=== PATIENT | female | born 1935 | race Two or more races ===

== ENCOUNTER 2018-07-11 14:26 | Emergency (ER) | payer OTHER, MEDICAID ==
[~2018-07-11] VITALS: Ht 152.4 cm; Wt 67.1 kg
[2018-07-11 15:36] LABS: Basophils # (auto) 0 uL; Basophils % (auto) 0.9 % (0.0-2.0); Eosinophils # (auto) 0.2 uL; Eosinophils % (auto) 2.8 % (0.0-7.0); Hematocrit 39.8 % (36.0-46.0); Hemoglobin 13.6 g/dL (12.2-16.2); Lymphocytes # (auto) 2.5 uL; Lymphocytes % (auto) 44.1 % (10.0-50.0); Mean Corpuscular Hemoglobin 30.9 pg (28.0-32.0); Mean Corpuscular Hgb Conc. 34.1 g/dL (32.0-36.0); Mean Corpuscular Volume 90.5 fL (80.0-100.0); Monocytes # (auto) 0.4 uL; Monocytes % (auto) 7.6 % (0.0-12.0); Neutrophils # (auto) 2.5 uL; Neutrophils % (auto) 44.6 % (37.0-80.0); Nucleated Red Blood Cells % 0.1 %; Platelet Count (auto) 225 10^3/uL (140-450); Red Cell Distribution Width 14.7 % (11.8-14.3); Urine Bacteria NONE SEEN /hpf (None Seen); Urine Blood TRACE /uL (Negative); Urine Specific Gravity 1.002 (1.001-1.035); Urine WBC <1 /hpf (0 - 5); White Blood Cell 5.6 10^3/uL (4.4-10.8)
[2018-07-11 16:08] LABS: Alanine Aminotransferase 23 U/L (13-56); Alkaline Phosphatase 89 U/L (45-117); Anion Gap 8 (5-15); Aspartate Aminotransferase 12 U/L (15-37); BUN/Creatinine Ratio 20.8; Bilirubin, Total 0.4 mg/dL (0.2-1.0); Blood Urea Nitrogen 16 mg/dL (7-18); Calcium 9.1 mg/dL (8.5-10.1); Carbon Dioxide 26 mmol/L (21-32); Chloride 106 mmol/L (98-107); GFR African American 93 mL/min; GFR Non-African American 76 mL/min; Glucose 102 mg/dL (74-106); Magnesium 2.9 mg/dL (1.6-2.6); Sodium 140 mmol/L (136-145); Total Protein 7.8 g/dL (6.4-8.2)
[2018-07-11] MEDS ORDERED: SPIRONOLACTONE 25 MG TAB PO ONE (16:30)
[2018-07-11] MEDS ORDERED: FUROSEMIDE 40 MG/4 ML VIAL IV ONE (16:30)
[2018-07-11] MEDS ORDERED: MORPHINE SULF INJ 2 MG/ML SYRINGE 1ML IV ONE (17:15)
[2018-07-11] MEDS ORDERED: PROMETHAZINE HCL 25 MG/ML 1ML IV ONE (17:15)
[2018-07-11] MEDS ORDERED: cloNIDine HCL 0.1 MG TAB PO ONE (17:45)
[2018-07-11 18:30] VITALS: BP 117/67
== END 2018-07-11 20:00 | disposition home or self-care (01) ==
LOC: ER 14:26
DX: I10 Essential (primary) hypertension (principal); G44.209 Tension-type headache, unspecified, not intractable; R60.9 Edema, unspecified; R42 Dizziness and giddiness; E78.5 Hyperlipidemia, unspecified
CPT/HCPCS: 36415; 70450; 71046; 80053; 81001; 83735; 84484; 85025; 96374; 99285; J1940; 93005

== ENCOUNTER 2018-12-15 00:55 | Emergency (ER) | payer OTHER, MEDICAID ==
[~2018-12-15] VITALS: Ht 152.4 cm; Wt 65.3 kg
[2018-12-15] MEDS ORDERED: cloNIDine HCL 0.1 MG TAB ONE (01:41)
[2018-12-15] MEDS ORDERED: cloNIDine HCL 0.1 MG TAB PO ONE (01:45)
[2018-12-15 01:48] LABS: Basophils # (auto) 0 uL; Basophils % (auto) 0.5 % (0.0-2.0); Eosinophils # (auto) 0.1 uL; Eosinophils % (auto) 1.1 % (0.0-7.0); Hematocrit 40.9 % (36.0-46.0); Hemoglobin 13.8 g/dL (12.2-16.2); Lymphocytes # (auto) 2.6 uL; Lymphocytes % (auto) 32.1 % (10.0-50.0); Mean Corpuscular Hemoglobin 30.9 pg (28.0-32.0); Mean Corpuscular Hgb Conc. 33.8 g/dL (32.0-36.0); Mean Corpuscular Volume 91.6 fL (80.0-100.0); Monocytes # (auto) 0.6 uL; Monocytes % (auto) 7.2 % (0.0-12.0); Neutrophils # (auto) 4.8 uL; Neutrophils % (auto) 59.1 % (37.0-80.0); Nucleated Red Blood Cells % 0.1 %; Platelet Count (auto) 261 10^3/uL (140-450); Red Blood Cells 4.46 10^6/uL (4.0-5.20); Red Cell Distribution Width 13.4 % (11.8-14.3); White Blood Cell 8.1 10^3/uL (4.4-10.8)
[2018-12-15 02:05] LABS: Alanine Aminotransferase 23 U/L (13-56); Anion Gap 12 (5-15); Aspartate Aminotransferase 16 U/L (15-37); BUN/Creatinine Ratio 19.6; Blood Urea Nitrogen 20 mg/dL (7-18); Calcium 9.2 mg/dL (8.5-10.1); Carbon Dioxide 22 mmol/L (21-32); Chloride 100 mmol/L (98-107); GFR African American 67 mL/min; GFR Non-African American 55 mL/min; Glucose 121 mg/dL (74-106); INR 0.93 (0.9-1.15); Magnesium 2.6 mg/dL (1.6-2.6); Partial Thromboplastin Time 28.6 sec (23.78-33.04); Potassium 4.4 mmol/L (3.5-5.1); Sodium 134 mmol/L (136-145)
[2018-12-15 02:10] LABS: Albumin 4.2 g/dL (3.4-5.0); Alkaline Phosphatase 79 U/L (45-117); Bilirubin, Total 0.3 mg/dL (0.2-1.0)
[2018-12-15] MEDS ORDERED: ONDANSETRON ODT 4 MG TAB PO ONE (06:00)
[2018-12-15 06:09] VITALS: BP 138/56
[2018-12-15] MEDS ORDERED: ACETAMINOPHEN 500 MG TAB PO ONE (06:30)
== END 2018-12-15 06:46 | disposition home or self-care (01) ==
LOC: ER 01:03
DX: I10 Essential (primary) hypertension (principal); R51 Headache; E78.5 Hyperlipidemia, unspecified
CPT/HCPCS: 36415; 70450; 71046; 80053; 83735; 84484; 85025; 85610; 85730; 93005; 99284; Q0162

== ENCOUNTER 2019-02-11 21:03 | Emergency (ER) | payer OTHER, MEDICAID ==
[~2019-02-11] VITALS: Ht 152.4 cm; Wt 65.8 kg
[2019-02-11 22:05] VITALS: BP 156/81
[2019-02-11] MEDS ORDERED: KETOROLAC TROMETH 30 MG/ML 1ML VIAL IM ONE (22:30)
[2019-02-11] MEDS ORDERED: HYDROcodone-ACET 5/325MG TAB PO ONE (23:00)
== END 2019-02-11 23:20 | disposition home or self-care (01) ==
LOC: ER 21:03
DX: S52.572A Other intraarticular fracture of lower end of left radius, initial encounter for closed fracture (principal); S52.612A Displaced fracture of left ulna styloid process, initial encounter for closed fracture; S09.90XA Unspecified injury of head, initial encounter; E78.5 Hyperlipidemia, unspecified; I10 Essential (primary) hypertension; W18.39XA Other fall on same level, initial encounter; Y93.89 Activity, other specified; Y99.8 Other external cause status; Y92.89 Other specified places as the place of occurrence of the external cause
CPT/HCPCS: 29125; 70450; 72125; 73110; 96372; 99284; J1885

== ENCOUNTER 2019-09-05 15:29 | Emergency (ER) | payer OTHER, MEDICAID ==
[~2019-09-05] VITALS: Ht 152.4 cm; Wt 66.2 kg
[2019-09-05 17:15] LABS: INR 0.99 (0.9-1.15); Partial Thromboplastin Time 28.7 sec (23.64-32.05)
[2019-09-05 17:17] LABS: Alanine Aminotransferase 26 U/L (13-56); Albumin 3.3 g/dL (3.4-5.0); Amylase 43 U/L (25-115); Anion Gap 9 (5-15); Aspartate Aminotransferase 20 U/L (15-37); BUN/Creatinine Ratio 17.2; Blood Urea Nitrogen 15 mg/dL (7-18); Carbon Dioxide 24 mmol/L (21-32); Chloride 97 mmol/L (98-107); GFR African American 80 mL/min; GFR Non-African American 66 mL/min; Glucose 115 mg/dL (74-106); Lipase 105 U/L (73-393); Sodium 130 mmol/L (136-145)
[2019-09-05 17:22] LABS: Alkaline Phosphatase 82 U/L (45-117); Bilirubin, Total 0.3 mg/dL (0.2-1.0); Total Protein 7.9 g/dL (6.4-8.2)
[2019-09-05 17:25] LABS: Basophils # (auto) 0 uL; Basophils % (auto) 0.3 % (0.0-2.0); Eosinophils # (auto) 0 uL; Eosinophils % (auto) 0.5 % (0.0-7.0); Hematocrit 35.3 % (36.0-46.0); Hemoglobin 11.9 g/dL (12.2-16.2); Lymphocytes # (auto) 1.4 uL; Lymphocytes % (auto) 15.6 % (10.0-50.0); Mean Corpuscular Hgb Conc. 33.7 g/dL (32.0-36.0); Mean Corpuscular Volume 92.1 fL (80.0-100.0); Monocytes % (auto) 11.2 % (0.0-12.0); Neutrophils # (auto) 6.3 uL; Neutrophils % (auto) 72.4 % (37.0-80.0); Platelet Count (auto) 227 10^3/uL (140-450); Red Blood Cells 3.84 10^6/uL (4.0-5.20); Red Cell Distribution Width 14.4 % (11.8-14.3); White Blood Cell 8.8 10^3/uL (4.4-10.8)
[2019-09-05] MEDS ORDERED: cloNIDine HCL 0.1 MG TAB ONE (19:54)
[2019-09-05] MEDS ORDERED: cloNIDine HCL 0.1 MG TAB PO ONE (20:00)
[2019-09-05 20:33] VITALS: BP 180/76
== END 2019-09-05 20:39 | disposition home or self-care (01) ==
LOC: ER 15:37
DX: R10.13 Epigastric pain (principal); R53.1 Weakness; R11.2 Nausea with vomiting, unspecified; F41.9 Anxiety disorder, unspecified; E44.1 Mild protein-calorie malnutrition; I10 Essential (primary) hypertension; E78.5 Hyperlipidemia, unspecified; R42 Dizziness and giddiness; Z68.28 Body mass index [BMI] 28.0-28.9, adult; Z87.440 Personal history of urinary (tract) infections; Z86.73 Personal history of transient ischemic attack (TIA), and cerebral infarction without residual deficits
CPT/HCPCS: 36415; 70450; 71045; 74176; 80053; 82150; 83690; 84484; 85025; 85610; 85730

== ENCOUNTER 2024-06-29 09:52 | Emergency (ER) | payer OTHER, MEDICAID ==
[~2024-06-29] VITALS: Ht 152.4 cm; Wt 53.0 kg
[~2024-06-29 09:52] MED LIST: ALEN70TA74 PO; ATEN50TA PO; DONE1TAB88 PO; LOSA-535 PO; PANT40T PO; SIMV10TA20 PO; SPIR1TAB22 PO
[2024-06-29 10:21] VITALS: PULSE 59; RESP 14; O2SAT 97
[2024-06-29 10:37] VITALS: TEMP 98.3
[2024-06-29] MEDS: SODIUM CHLORIDE 0.9% 1,000 ML IV ONE (11:02)
[2024-06-29 11:39] LABS: Basophils # (auto) 0.1 10 ^3/uL (0-0.2); Basophils % (auto) 0.8 % (0.0-2.0); Eosinophils # (auto) 0.1 10 ^3/uL (0-0.8); Eosinophils % (auto) 1.6 % (0.0-7.0); Hematocrit 36.5 % (36.0-46.0); Hemoglobin 12.2 g/dL (12.2-16.2); Lymphocytes # (auto) 1.9 10 ^3/uL (0.4-5.4); Lymphocytes % (auto) 28.4 % (10.0-50.0); Mean Corpuscular Hemoglobin 31.5 pg (28.0-32.0); Mean Corpuscular Hgb Conc. 33.4 g/dL (32.0-36.0); Mean Corpuscular Volume 94.4 fL (80.0-100.0); Monocytes # (auto) 0.5 10 ^3/uL (0-1.3); Monocytes % (auto) 8.2 % (0.0-12.0); Neutrophils # (auto) 4.1 10 ^3/uL (1.6-8.6); Nucleated Red Blood Cells % 0.1 %; Platelet Count (auto) 232 10^3/uL (140-450); Red Blood Cells 3.86 10^6/uL (4.0-5.20); Red Cell Distribution Width 14.5 % (11.8-14.3); White Blood Cell 6.7 10^3/uL (4.4-10.8)
[2024-06-29 11:54] LABS: Acetaminophen < 2.0 UG/ML (10.0-20.0)
[2024-06-29 11:58] LABS: Alanine Aminotransferase 14 U/L (7-40); Albumin 4.2 g/dL (3.2-4.8); Alkaline Phosphatase 50 U/L (46-116); Anion Gap 5 (5-15); Aspartate Aminotransferase 13 U/L (13-40); BUN/Creatinine Ratio 18.7 (10.0-20.0); Blood Alcohol < 3.0 mg/dL (<10); Blood Urea Nitrogen 17 mg/dL (9-23); Calcium 10.1 mg/dL (8.7-10.4); Carbon Dioxide 25 mmol/L (20-30); Chloride 105 mmol/L (98-107); Glucose 111 mg/dL (74-106); Sodium 135 mmol/L (136-145)
[2024-06-29 11:59] LABS: Bilirubin, Total 0.6 mg/dL (0.2-1.0); Total Protein 6.9 g/dL (5.7-8.2)
[2024-06-29 12:01] LABS: Salicylate < 3.0 mg/dL (2.8-20.0)
[2024-06-29 13:41] LABS: Urine Bacteria None Seen /hpf (None Seen)
[2024-06-29 13:56] LABS: Urine Blood TRACE /uL (Negative); Urine Clarity Clear (Clear); Urine Color Light-Yellow (Yellow); Urine Protein, UAD Negative (Negative); Urine Specific Gravity 1.007 (1.001-1.035); Urine Urobilinogen Normal (Negative); Urine WBC 1 /hpf (0 - 5)
[2024-06-29 14:06] LABS: Amphetamine Screen, Urine Neg (NEGATIVE); Barbiturate Scree,Urine Neg (NEGATIVE); Benzodiazephine Screen, Urine Neg (NEGATIVE)
[2024-06-29 14:07] LABS: Cannabinoid Screen, Urine Neg (NEGATIVE); Opiate Scree,Urine Neg (NEGATIVE); Phencyclidine Screen, Urine Neg (NEGATIVE)
[2024-06-29 14:10] LABS: Cocaine Screen, Urine Neg (NEGATIVE)
[2024-06-29] MEDS: LABETALOL HCL 20 MG/4 ML VL IV ONE (16:10)
[2024-06-29 18:03] VITALS: BP 131/66; PULSE 64; RESP 12; O2SAT 96
== END 2024-06-29 18:06 | disposition home or self-care (01) ==
LOC: ER 09:52
DX: F15.90 Other stimulant use, unspecified, uncomplicated (principal); I10 Essential (primary) hypertension; R53.1 Weakness; E78.5 Hyperlipidemia, unspecified; R51.9 Headache, unspecified; Z86.73 Personal history of transient ischemic attack (TIA), and cerebral infarction without residual deficits; Z79.899 Other long term (current) drug therapy
CPT/HCPCS: 36415; 70450; 80053; 80307; 80320; 80329; 81001; 82140; 82962; 83605; 84484; 85025; 93005; 96361; 96374; 99285; J7030